=== PATIENT | male | born 1950 | race Caucasian/White ===

== ENCOUNTER 2022-02-23 16:26 | Observation (INO) | payer MEDICARE ==
[~2022-02-23] VITALS: Ht 172.7 cm; Wt 115.8 kg
[2022-02-23] MEDS ORDERED: CITALOPRAM HBR40 M8 PO (18:52)
[2022-02-23] MEDS ORDERED: METO50ER PO (18:53)
[2022-02-23] MEDS ORDERED: VALSARTAN320 MG PO (18:53)
[2022-02-23] MEDS ORDERED: METFORMIN HCL500 M3 PO (18:54)
[2022-02-23] MEDS ORDERED: ASPIR 8181 M1 PO (18:55)
[2022-02-23] MEDS ORDERED: DEPAKOTE ER500 M2 PO (18:56)
[2022-02-23 19:54] LABS: Hematocrit 40.2 % (37.0-53.0); Hemoglobin 13.3 g/dL (13.5-17.5)
[2022-02-23 20:09] LABS: Anti-Xa UFH, PHA Monitoring <0.10 IU/mL; Prothrombin Time Results 11.5 Sec (9.7-11.5)
[2022-02-23] MEDS ORDERED: ATOR80 PO (21:49)
[2022-02-23] MEDS ORDERED: THERA-D2000 UNIT PO (21:50)
[2022-02-23] MEDS ORDERED: VITAMIN B122500 MC1 PO (21:51)
--- NOTE | 2022-02-24 01:43 | NUR ---
Rhythm Changes wetlands technician informed this RN that patient was having more 2 second pauses more frequently than before, and his rate dropped from 50's to low 40's. Repeat EKG showed T changes, physician informed. Patient is asymptomatic, Zoll at bedside and pads placed. Orders to continue to monitor.
[2022-02-24 02:27] LABS: BASOPHILS ABSOLUTE AUTO 0.07 K/mm3 (0.00-0.23); BASOPHILS PERCENT AUTO 1 % (0-2); EOSINOPHILS ABSOLUTE AUTO 0.25 K/mm3 (0.00-0.68); EOSINOPHILS PERCENT AUTO 4 % (0-6); Hematocrit 39.5 % (37.0-53.0); Hemoglobin 13.2 g/dL (13.5-17.5); IMMATURE GRAN ABSOLUTE AUTO 0.05 K/mm3 (0.00-0.10); IMMATURE GRAN PERCENT AUTO 1 % (0-1); LYMPHOCYTES ABSOLUTE AUTO 3.43 K/mm3 (0.84-5.20); LYMPHOCYTES PERCENT AUTO 48 % (21-46); MONOCYTES ABSOLUTE AUTO 0.73 K/mm3 (0.16-1.47); MONOCYTES PERCENT AUTO 10 % (4-13); Mean Corpuscular HGB 28.1 pg (26.0-34.0); Mean Corpuscular HGB Conc 33.4 g/dL (31.5-36.5); Mean Corpuscular Volume 84 fL (80-100); Mean Platelet Volume 11.4 fL (9.1-12.4); NEUTROPHILS ABSOLUTE AUTO 2.58 K/mm3 (1.96-9.15); NEUTROPHILS PERCENT AUTO 36 % (41-73); Platelet Count 223 K/mm3 (150-400); RDW Coefficient Variation 13.6 % (11.7-14.2); RDW Standard Deviation 41.9 fL (35.1-46.3); Red Blood Cell Count 4.69 M/mm3 (4.30-5.90); White Blood Cell Count 7.11 K/mm3 (4.00-11.30)
[2022-02-24 02:45] LABS: Alanine Aminotransfer (ALT/SGP 46 U/L (12-78); Albumin, Blood 3.3 g/dL (3.4-5.0); Albumin/Globulin Ratio 0.9 (0.8-1.8); Alk Phos 64 U/L (50-136); Anion Gap 7 mmol/L (6-16); Aspartate Aminotrans (AST/SGOT 20 U/L (12-37); Bilirubin, Total 0.4 mg/dL (0.1-1.0); Blood Urea Nitrogen 11 mg/dL (8-24); Bun/Creatinine Ratio 18.9 (12.0-20.0); CHOL/HDL RATIO 3.5; CO2, Blood 26 mmol/L (21-32); Calcium, Blood 8.3 mg/dL (8.5-10.1); Chloride, Blood 107 mmol/L (98-108); Cholesterol 110 mg/dL (50-200); Creatinine, Blood 0.58 mg/dL (0.60-1.20); Globulin, Blood 3.5 g/dL (2.2-4.0); Glomerular Filtration Rate 106 (60-); Glucose, Blood 138 mg/dL (70-99); HDL Cholesterol 31 mg/dL (>39); LDL/HDL RATIO 1.5; Low Density Lipoprotein Chol 46 mg/dL (0-110); Potassium, Blood 3.4 mmol/L (3.5-5.5); Sodium, Blood 140 mmol/L (136-145); Total Protein, Blood 6.8 g/dL (6.4-8.2); Triglycerides 166 mg/dL (30-160); Very Low Density Lipoprot Chol 33 mg/dL (6-32)
--- NOTE | 2022-02-24 05:36 | NUR ---
SHIFT SUMMARY Assumed care of pt at 2128 as an ER admit. A/Ox4, pt states slightly [place]. Independent in room. Resp WNL, does wear CPAP HS. Mobitz II on tele, rates from 40-60's at beginning of care, then towards end of shift 20-40's. CP x1 this shift, resolved on its own within a few minutes. Patient began having pauses more often of 2 seconds, repeat EKG showed T changes, MD notified - Zoll at bedside and pads placed, order to continue to monitor. Strong +2 radial pulses bl, and faint +1 pedals bl. Heparin running per emar. Hyperactive bowel tones, no BM this shift. Patient is type II diabetic, managed with oral medication. States he would like dietary consult, and will also have bring in his glucometer to learn how to use as he hasn't been able to check it at home. Will report to daysdeangelo CRUZ.
--- NOTE | 2022-02-24 07:25 | NUR ---
INITIAL ASSESSMENT: Patient is resting with eyes closed. Resp E/U, he easily awakens with verbal stimuli. He is oriented x4. Denies pain at this time. HR irreg, Second degree block type 2 with a rate in the 50s-60 this am, per NOC RN his heart rate got as low as 29 while he was asleep. LS CTA, Biox 100% on RA. Patient states he has been having transient SOB. BT+. PPP. VSS. Hep gtt infusing at 15u/kg/hr. Patient denies needs at this time. Call light in reach. WCTM.
--- NOTE | 2022-02-24 09:15 | NUR ---
is here to see the patient. Plan for a stress test. Hep gtt DC'd per MD orders. Patient is resting comfortably at this time. Denies needs.
--- NOTE | 2022-02-24 12:00 | NUR ---
UPDATE: Patient is resting comfortably in bed. VSS. Pt was able to eat after NUC MED injected him. No s/s coverage needed for CBG. Patient denies other needs at this time. Call light in reach.
--- NOTE | 2022-02-24 13:27 | NUR ---
Spiritual care visit conducted. Pt immediately tells me about his medical problems and what led to his admission into the hospital. He talks about his Diya, his 2 sons and 3 grandchildren in [place] and the cousin that they recently moved to [place] to live near. 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 He explains about the fears he because of his heart issues. I conduct a life review, normalize his experience and provide therapeutic listening, gentle residential substance abuse counselor and prayer. Pt responds well and shows signs of increased peace. I will continue to remain available to pt and family.
--- NOTE | 2022-02-24 16:00 | NUR ---
Update: Assessment unchanged. VSS. Patient is resting comfortably in bed. I reviewed with him how to use his home CBG machine, pt verbalizes understanding. Patient denies other needs at this time. Call light in reach, KYLE.
--- NOTE | 2022-02-24 17:57 | NUR ---
Summary: Patient is alert and oriented. He went to the doctor because of his diarrhea. He was admitted to PCU for elevated troponins. He is alert and oriented. No C/O chest pain or SOB this shift. He has been in a second degree AV block T/O my shift-with a rate 50s-60s. LS CTA, BIOX 96-100% on RA. Pt uses home C-Pap while asleep. BT+. Dr. Caldwell came to see the patient today regarding his elevated troponin. Stress test ordered, resting portion complete today-plan for stress portion tomorrow at 1130am per NUC med-hold breakfast. CBG stable T/O the shift-no S/S coverage needed. Patient had no acute changes this shift, will report to oncoming RN.
[2022-02-25 04:42] LABS: Anion Gap 7 mmol/L (6-16); Blood Urea Nitrogen 14 mg/dL (8-24); Bun/Creatinine Ratio 20.5 (12.0-20.0); CHOL/HDL RATIO 3.5; CO2, Blood 27 mmol/L (21-32); Calcium, Blood 8.7 mg/dL (8.5-10.1); Chloride, Blood 105 mmol/L (98-108); Cholesterol 109 mg/dL (50-200); Creatinine, Blood 0.68 mg/dL (0.60-1.20); Glomerular Filtration Rate 101 (60-); Glucose, Blood 113 mg/dL (70-99); HDL Cholesterol 31 mg/dL (>39); LDL/HDL RATIO 1.6; Low Density Lipoprotein Chol 48 mg/dL (0-110); Magnesium, Blood 2.2 mg/dL (1.6-2.4); Potassium, Blood 3.8 mmol/L (3.5-5.5); Sodium, Blood 139 mmol/L (136-145); Triglycerides 148 mg/dL (30-160); Very Low Density Lipoprot Chol 29 mg/dL (6-32)
--- NOTE | 2022-02-25 05:30 | NUR ---
SHIFT SUMMARY Patient slept most of the night with CPAP in place and satting over 95%. No reports of CP/pressure. Mobitz II on tele with rates dropping as low as 27, although patient asymptomatic. Avg rate t/o night was 35-45. BP stable. Will update dayshift RN.
--- NOTE | 2022-02-25 07:36 | NUR ---
Initial Assessment: Patient is sleeping with C-Pap in place. C-Pap taken off per pt request. Patient is alert and oriented. He reports minimal lower back pain and some cramping in his left calf-he states some of this is chronic. HR irreg, 2 degree block type 2 with a rate in the 50s. LS CTA, Biox is 100% on RA. BT+, ABD non-tender to light palpation. PPP. VSS. Patient denies other needs at this time. Call light in reach. WCTM.
--- NOTE | 2022-02-25 12:30 | NUR ---
Update: Patient is resting comfortably in bed. VSS. at bedside. NUC med to do second portion of stress test here soon. Pt denies needs at this time.
--- NOTE | 2022-02-25 17:52 | NUR ---
Summary: Patient has been alert and oriented t/o the shift. No C/O chest pain or SOB. He has remained in a second degree type 2 block, with a rate in the 60s-70s. He finished his stress test today, the plan is for the patient to have an angiogram in the AM. Dr. Caldwell has been by to explain procedure and consent is on the chart. BT+. PPP. CBG has been great t/o the shift, one unit humalog given with dinner. He is using the urial independently. VSS t/o my shift. Patient is resting comfortably in his bed at this time. Will report to oncoming RN.
[2022-02-25 19:23] LABS: SARS-Cov-2 (COVID-19) PCR, MMC NEGATIVE (NEGATIVE)
--- NOTE | 2022-02-26 05:56 | NUR ---
SHIFT SUMMARY Patient slept most of the night with CPAP in place, satting above 95%. HR down into 30's last night, patient mostly asymptomatic. This morning around 0536 patient stated he felt like his heart was fluttering, reviewing the tele it appears patient wasn't experiencing any pauses/skipped beats during this time as opposed to the rest of the night. No CP/Pressure. NS started 0600 per emar. Patient NPO. Will report to dayshift ANTHONY
--- NOTE | 2022-02-26 10:34 | NUR ---
PT OUT OF ROOM AT 1035 TO DIGITAL MEASUREMENT ADVISOR FOR SCHEDULED ANGIOGRAM.
--- NOTE | 2022-02-26 17:04 | NUR ---
SHIFT SUMMARU: PT RESTED THROUGHOUT THE DAY. HAS BEEN PLEASENT AND COOPERATIVE WITH CARE. ALERT AND ORIENTED X4. SR 50's-60's W/ TYPE II HB. BP STABLE. PT HAD NO COMPLAINTS OF CP OR SOB THIS SHIFT. PT HAD ANGIOGRAM THIS AFTERNNON. NO STENTS WERE PLACED. TR BAND REMAINS IN PLACE. L RADIAL SITE WNL. PT HAS BEEN USING URINAL AT BEDSIDE. HAD APPROX 600 ML OF URINARY OUTPUT THIS SHIFT. REMAINED AT BESIDE THROGHOUT THE DAY. UPDATED FREQUENTLY ON PT CARE. PLAN FOR PT IS TO DISCHARGE LATER TONIGHT. WILL REPORT TO ONCOMING RN.
[2022-02-26] MEDS ORDERED: CLOP75 PO (17:28)
--- NOTE | 2022-02-26 22:21 | NUR ---
DISCHARGE SUMMARY PT DISCHARGED @ 2014. IV REMOVED. ANGIO SITE C/D/I, WRIST BOARD IN PLACE. PT EDUCATED ABOUT MEDICATIONS AND FOLLOW UP APPOINTMENTS. WENT HOME WITH DRIVING. IV REMOVED.
== END 2022-02-26 20:16 | disposition home or self-care (01) ==
LOC: ER 16:26 → PCU 20:00
PROVIDERS: Emergency Medicine; Family Medicine; Internal Medicine; Internal Medicine Cardiovascular Disease; ADMIT Internal Medicine
PROC: B2111ZZ Fluoroscopy of Multiple Coronary Arteries using Low Osmolar Contrast (ICD-10-PCS; principal; 2022-02-26)
PROC: 4A023N7 Measurement of Cardiac Sampling and Pressure, Left Heart, Percutaneous Approach (ICD-10-PCS; principal; 2022-02-26)
PROC: B2151ZZ Fluoroscopy of Left Heart using Low Osmolar Contrast (ICD-10-PCS; principal; 2022-02-26)
DX: I21.4 Non-ST elevation (NSTEMI) myocardial infarction (principal); I42.2 Other hypertrophic cardiomyopathy; I44.1 Atrioventricular block, second degree; E87.6 Hypokalemia; I25.10 Atherosclerotic heart disease of native coronary artery without angina pectoris; E11.9 Type 2 diabetes mellitus without complications; F31.9 Bipolar disorder, unspecified; I25.2 Old myocardial infarction; Z95.1 Presence of aortocoronary bypass graft; Z88.0 Allergy status to penicillin; Z88.2 Allergy status to sulfonamides; Z79.82 Long term (current) use of aspirin; Z79.84 Long term (current) use of oral hypoglycemic drugs; Z79.899 Other long term (current) drug therapy; Z20.822 Contact with and (suspected) exposure to COVID-19
CPT/HCPCS: 36415; 76937; 78452; 80048; 80053; 80061; 82947; 83036; 83735; 84484; 85014; 85018; 85025; 85347; 85520; 85610; 85730; 92978; 93005; 93010; 93017; 93308; 93321; 93458; 94660; 94762; 96366; 96372; 99152; 99153; 99285-25; A9270; A9500; C1753; C1769; C1887; C1894; G0378; J0706; J1644; J1650; J2250; J2785; J3010; J7030; J7040; Q9967; U0004

== ENCOUNTER → 2022-02-23 | Outpatient (CLI) | payer MEDICARE ==
[~2022-02-23] MED LIST: ASPIR 8181 M1 PO; ATOR80 PO; CITALOPRAM HBR40 M8 PO; DEPAKOTE ER500 M2 PO; METFORMIN HCL500 M3 PO; METO50ER PO; THERA-D2000 UNIT PO; VALSARTAN320 MG PO; VITAMIN B122500 MC1 PO
[2022-02-23 15:19] LABS: BASOPHILS ABSOLUTE AUTO 0.07 K/mm3 (0.00-0.23); BASOPHILS PERCENT AUTO 1 % (0-2); EOSINOPHILS PERCENT AUTO 3 % (0-6); Hematocrit 43.4 % (37.0-53.0); Hemoglobin 14.5 g/dL (13.5-17.5); IMMATURE GRAN ABSOLUTE AUTO 0.05 K/mm3 (0.00-0.10); IMMATURE GRAN PERCENT AUTO 1 % (0-1); LYMPHOCYTES ABSOLUTE AUTO 2.33 K/mm3 (0.84-5.20); LYMPHOCYTES PERCENT AUTO 37 % (21-46); MONOCYTES ABSOLUTE AUTO 0.67 K/mm3 (0.16-1.47); MONOCYTES PERCENT AUTO 11 % (4-13); Mean Corpuscular HGB 28.4 pg (26.0-34.0); Mean Corpuscular HGB Conc 33.4 g/dL (31.5-36.5); Mean Corpuscular Volume 85 fL (80-100); Mean Platelet Volume 11.2 fL (9.1-12.4); NEUTROPHILS PERCENT AUTO 47 % (41-73); Platelet Count 252 K/mm3 (150-400); RDW Coefficient Variation 13.9 % (11.7-14.2); RDW Standard Deviation 43.1 fL (35.1-46.3); Red Blood Cell Count 5.11 M/mm3 (4.30-5.90); White Blood Cell Count 6.32 K/mm3 (4.00-11.30)
[2022-02-23 15:31] LABS: Albumin, Blood 3.7 g/dL (3.4-5.0); Albumin/Globulin Ratio 0.9 (0.8-1.8); Bilirubin, Total 0.3 mg/dL (0.1-1.0); Bun/Creatinine Ratio 21.9 (12.0-20.0); Calcium, Blood 8.8 mg/dL (8.5-10.1); Creatinine, Blood 0.73 mg/dL (0.60-1.20); Potassium, Blood 4.1 mmol/L (3.5-5.5); Total Protein, Blood 7.7 g/dL (6.4-8.2)
== END | disposition home or self-care (01) ==
LOC: LAB 15:16 → LAB SHORT 15:16
PROVIDERS: Physician Assistant
DX: R07.9 Chest pain, unspecified (principal)
CPT/HCPCS: 80053; 83735; 84484; 85025

== ENCOUNTER 2022-03-19 18:12 | Emergency (ER) | payer MEDICARE ==
[~2022-03-19] VITALS: Ht 188 cm; Wt 118.4 kg
[2022-03-19 20:20] LABS: Magnesium, Blood 2.2 mg/dL (1.6-2.4); Thyroid Stimulating Hormone 1.19 uIU/mL (0.360-4.800)
[2022-03-19 21:27] LABS: Influenza A, PCR NEGATIVE (NEGATIVE); Influenza B, PCR NEGATIVE (NEGATIVE); Resp Syncytial Virus, PCR NEGATIVE (NEGATIVE); SARS-Cov-2 (COVID-19) PCR, MMC NEGATIVE (NEGATIVE)
== END 2022-03-20 01:34 | disposition home or self-care (01) ==
LOC: ER 18:12
PROVIDERS: Student in an Organized Health Care Education/Training Program
DX: I42.2 Other hypertrophic cardiomyopathy (principal); R07.9 Chest pain, unspecified; Z88.0 Allergy status to penicillin; Z88.2 Allergy status to sulfonamides; Z79.899 Other long term (current) drug therapy; Z79.82 Long term (current) use of aspirin; Z79.84 Long term (current) use of oral hypoglycemic drugs; I25.2 Old myocardial infarction; E11.9 Type 2 diabetes mellitus without complications
CPT/HCPCS: 0241U; 83735; 83880; 84443; 84484; 85379; 93005; 93010; 99284-25

== ENCOUNTER → 2022-03-19 | Outpatient (CLI) | payer MEDICARE ==
[~2022-03-19] MED LIST changes: +CLOP75 PO
[2022-03-19 14:39] LABS: BASOPHILS ABSOLUTE AUTO 0.07 K/mm3 (0.00-0.23); BASOPHILS PERCENT AUTO 1 % (0-2); EOSINOPHILS ABSOLUTE AUTO 0.18 K/mm3 (0.00-0.68); EOSINOPHILS PERCENT AUTO 3 % (0-6); Hemoglobin 13.6 g/dL (13.5-17.5); IMMATURE GRAN ABSOLUTE AUTO 0.05 K/mm3 (0.00-0.10); IMMATURE GRAN PERCENT AUTO 1 % (0-1); LYMPHOCYTES PERCENT AUTO 27 % (21-46); MONOCYTES ABSOLUTE AUTO 0.69 K/mm3 (0.16-1.47); MONOCYTES PERCENT AUTO 11 % (4-13); Mean Corpuscular HGB 28.3 pg (26.0-34.0); Mean Corpuscular HGB Conc 33.2 g/dL (31.5-36.5); Mean Corpuscular Volume 85 fL (80-100); Mean Platelet Volume 11.2 fL (9.1-12.4); NEUTROPHILS ABSOLUTE AUTO 3.69 K/mm3 (1.96-9.15); NEUTROPHILS PERCENT AUTO 58 % (41-73); Platelet Count 241 K/mm3 (150-400); RDW Coefficient Variation 13.9 % (11.7-14.2); RDW Standard Deviation 43.1 fL (35.1-46.3); Red Blood Cell Count 4.81 M/mm3 (4.30-5.90); White Blood Cell Count 6.38 K/mm3 (4.00-11.30)
[2022-03-19 15:35] LABS: Bun/Creatinine Ratio 21.8 (12.0-20.0); Calcium, Blood 9.1 mg/dL (8.5-10.1); Creatinine, Blood 0.6 mg/dL (0.60-1.20)
== END | disposition home or self-care (01) ==
LOC: LAB 14:32 → LAB SHORT 14:32
PROVIDERS: Physician Assistant Surgical
DX: R07.89 Other chest pain (principal); R42 Dizziness and giddiness
CPT/HCPCS: 80048; 84484; 85025

== ENCOUNTER 2022-08-17 06:26 | Day surgery (SDC) | payer MEDICARE ==
[~2022-08-17] VITALS: Ht 188 cm; Wt 120.5 kg
[~2022-08-17 06:26] MED LIST changes: +CELEXA40 M1 PO; -CITALOPRAM HBR40 M8 PO; +NITR.4SL SL; +TOPROL XL50 M1 PO
[2022-08-17] MEDS ORDERED: METO50ER PO (06:54)
--- NOTE | 2022-08-17 16:54 | NUR ---
SHIFT SUMMARY PT REMAINS ALERT AND ORIENTED. VS STABLE. HR HAS BEEN VPACED MOST. WOUND TO LEFT CHEST WALL WITH DRESSING AND SMALL AMOUNT OF OOZING NOTED. LEFT ARM IN SLING. PT COMPLAINS OF PAIN TO LEFT SHOULDER THAT DECREASES WITH MEDICATION ADMINISTRATION. PT NEEDS ASSISTANCE TO SIT UP ON THE EDGE OF BED WITH MINIMAL ASSISTANCE AND CAN AMBULATE TO BATHROOM INDEPENDENTLY. WILL CONTINUE TO MONITOR AND REPORT TO ONCOMING RN
--- NOTE | 2022-08-17 20:44 | NUR ---
ASSUMPTION OF CARE THIS RN ASSUMED CARE OF PT AT 1900. REPORT RECEIEVED FROM ANTHONY PERALES. VSS. PT A&O X4, PLEASANT AND COOPERATIVE WITH CARE. PT RESPONDING TO QUESTIONS APPROPRIATELY. PT L ARM IS IN SLING, PT REPORTS 2/10 PAIN WHICH IS MANAGEABLE FOR HIM AT THIS TIME. VS MONITOR SHOWS VENTRICULAR PACING W/HR OF 74. PT DENIES ANY NEEDS OR CONCERNS AT THIS TIME. SITE IS UNCHANGED FROM ALREADY KNOWN SMALL AMOUNT OF OOZING FROM SITE. PT USING BATHROOM INDEPENDENTLY, W.MINIMAL ASSISTANCE AT TIMES FOR LINES, CORDS AND NOT BEING ABLE TO USE L ARM. CALL LIGHT IN REACH AND PT USES APPROPRIATELY.
--- NOTE | 2022-08-18 06:06 | NUR ---
SHIFT SUMMARY PT REMAIN A&0 T/O SHIFT. VSS; ALTHOUGH LAST VS SHOWED SBP 156 - 158. PT DOES REPORT PAIN R/T SURGERY IN L SIDE OF CHEST AND SHOULDER. REPORTS PAIN RANGING FROM 7 - 9; MEDICATED PER EMAR AND ICE APPLIED TO HELP RELIEVE PAIN. SLING IN PLACE T/O SHIFT. PT SLEPT ON AND OFF DURING SHIFT. PT UP TO BATHROOM INDEPENDENTLY SEVERAL TIMES TO VOID. PT WILL CALL APPROPRIATLEY IF HE NEEDS HELP. PT REPORTS FEELING "MUCH BETTER NOW AFTER PACEMAKER PLACED". DENIES CP, PRESSURE OR SOB. DENIES DIZZINESS, LIGHTHEADNESS, REPORTS IMPROVEMENT IN FEELING "TIRED AND FATIGUED". REPORTS HEADACHES THAT HE HAS HAD ARE RESOLVED NOW. CALL LIGHT IN REACH AND BED IN LOWEST POSITION. WILL UPDATE ONCOMING RN
[2022-08-18] MEDS ORDERED: CEPH500 PO (10:30)
--- NOTE | 2022-08-18 12:11 | NUR ---
PT DISCHARGED TO HOME VIA PRIVATE VEHICLE - TO TRANSPORT. PT RECEIVED ALL DISCHARGE INSTRUCTIONS AND PPM PACKET. STATES SHE TOOK HOME PPM CARD DAY PRIOR. PT AND S/O VERBALIZE UNDERSTANDING OFF ALL INFORMATION AND DISCHARGE INSTRUCTIONS. MEDICATIONS TO [facility] ON [address]. IV REMOVED AND PT LEFT WITH ALL BELONGINGS @1309
== END 2022-08-18 11:22 | disposition home or self-care (01) ==
LOC: MHTC 06:26 → PCU 10:42 → MHTC 08-18 11:22
DX: I47.20 Ventricular tachycardia, unspecified (principal); I42.1 Obstructive hypertrophic cardiomyopathy; I44.1 Atrioventricular block, second degree; I10 Essential (primary) hypertension; I25.10 Atherosclerotic heart disease of native coronary artery without angina pectoris; E11.9 Type 2 diabetes mellitus without complications; G47.33 Obstructive sleep apnea (adult) (pediatric); E66.01 Morbid (severe) obesity due to excess calories; Z68.34 Body mass index [BMI] 34.0-34.9, adult; Z79.82 Long term (current) use of aspirin; Z79.02 Long term (current) use of antithrombotics/antiplatelets; Z79.899 Other long term (current) drug therapy
CPT/HCPCS: 33249; 71045; 71046; 76937; 99152; 99153; A9270; C1721; C1781; C1894; C1895; C1898; J1644; J2250; J3010; J3370; J7030; J7040; J7050

== ENCOUNTER → 2022-09-15 | Outpatient (CLI) | payer MEDICARE ==
[~2022-09-15] MED LIST changes: +CEPH500 PO
== END | disposition home or self-care (01) ==
LOC: LAB 09:44 → LAB SHORT 09:44
DX: E11.65 Type 2 diabetes mellitus with hyperglycemia (principal); E53.8 Deficiency of other specified B group vitamins
CPT/HCPCS: 36415; 82607; 83036

== ENCOUNTER 2023-03-12 09:10 | Day surgery (SDC) | payer MEDICARE ==
[~2023-03-12] VITALS: Ht 188 cm; Wt 112.6 kg
[2023-03-12 10:03] VITALS: BP 140/68
[2023-03-12 10:05] VITALS: BP 136/69
--- NOTE | 2023-03-12 10:25 | NUR ---
Ambulatory in Day Surgery. History, Chart, Medications and Allergies reviewed before start of procedure. Patient confirms NPO status and agrees with scheduled surgery. Pre-Op teaching done. Pt verbalizes understanding. Patient States Post-Procedure ride home has been arranged.
--- NOTE | 2023-03-12 11:08 | NUR ---
03/12/23 1108 Maria Eugenia Rivera History, Chart, Medications and Allergies reviewed before start of procedure.DR PFEIFFER GIVING ANESTHESIA SEE RECORDS
[2023-03-12 12:25] VITALS: BP 148/103
[2023-03-12 12:41] VITALS: BP 131/104
[2023-03-12 12:47] VITALS: BP 167/70
--- NOTE | 2023-03-12 13:39 | NUR ---
PT ALERT AND TALKING, VITALS STABLE. PT AND SPOUSE TAUGHT DISCHARGE ORDERS. PT DRESSED AND STEADY ON HIS FEET. DISCHARGED VIA WHEELCHAIR TO HOME.
== END 2023-03-12 22:48 | disposition home or self-care (01) ==
LOC: ORSCMMR 09:10 → ORD 10:30 → ORSCMMR 22:48
DX: Z12.11 Encounter for screening for malignant neoplasm of colon (principal); D12.0 Benign neoplasm of cecum; D12.2 Benign neoplasm of ascending colon; D12.3 Benign neoplasm of transverse colon; D12.4 Benign neoplasm of descending colon; K63.5 Polyp of colon; K57.30 Diverticulosis of large intestine without perforation or abscess without bleeding; K64.8 Other hemorrhoids; E78.5 Hyperlipidemia, unspecified; I25.2 Old myocardial infarction; G47.33 Obstructive sleep apnea (adult) (pediatric); E11.9 Type 2 diabetes mellitus without complications; Z79.02 Long term (current) use of antithrombotics/antiplatelets; Z79.84 Long term (current) use of oral hypoglycemic drugs; Z79.899 Other long term (current) drug therapy
CPT/HCPCS: 82947; 88305; J2704; J7120

== ENCOUNTER → 2023-03-18 | Outpatient (CLI) | payer MEDICARE ==
[2023-03-18 18:59] LABS: Creatinine, Urine Random 52.7 mg/dL (27.00-270.00); Microalb/Creat Ratio UR, Rand 38.14 mg/g (0.000-30.000); Microalbumin, Random Urine 20.1 mg/L (0.000-20.000)
== END | disposition home or self-care (01) ==
LOC: LAB SHORT 15:00 → LAB 15:00
PROVIDERS: Family Medicine
DX: E11.65 Type 2 diabetes mellitus with hyperglycemia (principal)
CPT/HCPCS: 82043; 82570

== ENCOUNTER 2023-04-01 07:23 | Day surgery (SDC) | payer MEDICARE ==
[~2023-04-01] VITALS: Ht 190.5 cm; Wt 113.7 kg
[2023-04-01] MEDS ORDERED: ELIQUIS5 M2 PO (07:41)
[2023-04-01] MEDS ORDERED: JARDIANCE25 MG PO (07:42)
[2023-04-01 08:59] VITALS: BP 111/62
== END 2023-04-01 09:18 | disposition home or self-care (01) ==
LOC: ORSCSDS 07:23
PROVIDERS: Ophthalmology
PROC: 08RJ3JZ Replacement of Right Lens with Synthetic Substitute, Percutaneous Approach (ICD-10-PCS; principal; 2023-04-01 08:30)
DX: E11.36 Type 2 diabetes mellitus with diabetic cataract (principal); H25.11 Age-related nuclear cataract, right eye; E66.9 Obesity, unspecified; Z68.31 Body mass index [BMI] 31.0-31.9, adult; Z79.02 Long term (current) use of antithrombotics/antiplatelets; G47.33 Obstructive sleep apnea (adult) (pediatric); Z95.810 Presence of automatic (implantable) cardiac defibrillator; I10 Essential (primary) hypertension; E78.5 Hyperlipidemia, unspecified; I25.2 Old myocardial infarction; Z79.84 Long term (current) use of oral hypoglycemic drugs; Z79.01 Long term (current) use of anticoagulants; Z79.899 Other long term (current) drug therapy
CPT/HCPCS: 82947; J2001; J2250; J3010; J3301; J7040; V2632

== ENCOUNTER 2023-07-12 14:28 | Emergency (ER) | payer MEDICARE ==
[~2023-07-12] VITALS: Ht 190.5 cm; Wt 112.0 kg
[~2023-07-12 14:28] MED LIST changes: +ELIQUIS5 M2 PO; +JARDIANCE25 MG PO
[2023-07-12 14:49] VITALS: BP 111/56
[2023-07-12 15:39] LABS: Influenza A, PCR NEGATIVE (NEGATIVE); Influenza B, PCR NEGATIVE (NEGATIVE); Resp Syncytial Virus, PCR NEGATIVE (NEGATIVE)
[2023-07-12 16:11] LABS: SARS-Cov-2 (COVID-19) PCR, MMC POSITIVE (NEGATIVE)
== END 2023-07-12 15:11 | disposition home or self-care (01) ==
LOC: ER 14:28
PROVIDERS: Physician Assistant
DX: U07.1 COVID-19 (principal); E11.9 Type 2 diabetes mellitus without complications; I25.2 Old myocardial infarction; F31.9 Bipolar disorder, unspecified; I42.1 Obstructive hypertrophic cardiomyopathy; Z87.891 Personal history of nicotine dependence; Z79.01 Long term (current) use of anticoagulants; Z79.84 Long term (current) use of oral hypoglycemic drugs; Z79.899 Other long term (current) drug therapy; Z88.0 Allergy status to penicillin; Z88.1 Allergy status to other antibiotic agents; Z88.2 Allergy status to sulfonamides
CPT/HCPCS: 0241U; 71046; 99283

== ENCOUNTER 2024-10-30 19:39 | Emergency (ER) | payer MEDICARE ==
[~2024-10-30] VITALS: Ht 190.5 cm; Wt 117.9 kg
[2024-10-30] MEDS ORDERED: NS 1,000 ML IV SCH (20:15)
[2024-10-30 20:43] LABS: BASOPHILS ABSOLUTE AUTO 0.07 K/mm3 (0.00-0.23); BASOPHILS PERCENT AUTO 1 % (0-2); EOSINOPHILS ABSOLUTE AUTO 0.28 K/mm3 (0.00-0.68); EOSINOPHILS PERCENT AUTO 4 % (0-6); Hematocrit 44.1 % (37.0-53.0); Hemoglobin 14.7 g/dL (13.5-17.5); IMMATURE GRAN ABSOLUTE AUTO 0.07 K/mm3 (0.00-0.10); IMMATURE GRAN PERCENT AUTO 1 % (0-1); LYMPHOCYTES ABSOLUTE AUTO 2.75 K/mm3 (0.84-5.20); LYMPHOCYTES PERCENT AUTO 40 % (21-46); MONOCYTES ABSOLUTE AUTO 0.81 K/mm3 (0.16-1.47); MONOCYTES PERCENT AUTO 12 % (4-13); Mean Corpuscular HGB 28.8 pg (26.0-34.0); Mean Corpuscular HGB Conc 33.3 g/dL (31.5-36.5); Mean Corpuscular Volume 87 fL (80-100); NEUTROPHILS ABSOLUTE AUTO 2.94 K/mm3 (1.96-9.15); NEUTROPHILS PERCENT AUTO 43 % (41-73); NRBC ABSOLUTE 0.02 K/mm3 (0.00-0.02); NRBC Auto 0.3 /100 WBC (0.0-0.2); RDW Coefficient Variation 12.9 % (11.7-14.2); RDW Standard Deviation 40.5 fL (35.1-46.3); White Blood Cell Count 6.92 K/mm3 (4.00-11.30)
[2024-10-30 20:56] LABS: Albumin, Blood 3.7 g/dL (3.4-5.0); Albumin/Globulin Ratio 1.1 (0.8-1.8); Bilirubin, Total 0.3 mg/dL (0.1-1.0); Bun/Creatinine Ratio 23.4 (12.0-20.0); Calcium, Blood 8.8 mg/dL (8.5-10.1); Creatinine, Blood 0.64 mg/dL (0.60-1.20); Globulin, Blood 3.4 g/dL (2.2-4.0); Potassium, Blood 4.3 mmol/L (3.5-5.5); Total Protein, Blood 7.1 g/dL (6.4-8.2)
[2024-10-30 21:45] LABS: Source, Urine Voided
[2024-10-30 21:48] LABS: Bilirubin, Urine Neg (Neg); Blood, Urine Neg (Neg); Glucose Qualitative, Urine 4+ (Neg); Ketones, Urine Neg (Neg); Leukocyte Esterase, Urine Neg (Neg); Nitrite, Urine Neg (Neg); Protein, Urine Neg (Neg); Urobilinogen, Urine NORM (Normal)
[2024-10-30 22:02] LABS: Appearance, Urine Clear (Clear); Color, Urine Yellow (P-Yellow)
[2024-10-30 22:29] VITALS: BP 137/76
== END 2024-10-30 22:39 | disposition home or self-care (01) ==
LOC: ER 19:39
PROVIDERS: Emergency Medicine
DX: E11.65 Type 2 diabetes mellitus with hyperglycemia (principal); Z87.891 Personal history of nicotine dependence; Z88.0 Allergy status to penicillin; Z88.2 Allergy status to sulfonamides; Z88.1 Allergy status to other antibiotic agents; Z79.84 Long term (current) use of oral hypoglycemic drugs; Z79.899 Other long term (current) drug therapy; Z79.01 Long term (current) use of anticoagulants
CPT/HCPCS: 80053; 81003; 82947; 84484; 85025; 93005; 93010; 99285-25; J7030